=== PATIENT | female | born 2005 | race Two or more races ===

== ENCOUNTER 2025-07-18 06:26 | Inpatient (IN) | payer MEDICAID ==
[~2025-07-18] VITALS: Ht 165.1 cm; Wt 126.3 kg
[2025-07-18] MEDS: ONDANSETRON HCL 4 MG/2 ML VIAL IV ONE (07:22)
--- NOTE | 2025-07-18 07:33 | ED.PDOC ---
GI ASSESSMENT HPI Comments 20 y/o F, presents to the ED for CC of abdominal pain. Patient states, she has been experiencing RUQ abdominal pain with associated nausea/vomiting onset, 0500 this morning (07/18/25). Patient denies any fever, diarrhea, chills, sweats, or constipation. No other symptoms or modifying factors are present at this time. Chief Complaint: Abdominal Pain Time Seen by MD: 07:20 Primary Care Provider: KARON Reviewed Notes: Nurses Notes, Medications, Allergies Allergies: Coded Allergies: NO KNOWN ALLERGIES (Unverified , 02/21/11) Information Source: Patient Mode of Arrival: Ambulatory Timing: Hours Duration: Since onset Prehospital treatment: None Quality: None Vomitus: Watery Stool: Normal Severity: Moderate Recent Hx of: None Pain Location: RUQ Modifying Factors: Nothing Associated sign and symptoms: Nausea, Vomiting, Abdominal Pain Past Medical History PAST MEDICAL HISTORY: Denies Surgical History: Denies all surgeries 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 [employer]USTIC STRENGTH INSPECTOR Hx Family History Family History: Unknown Social History Smoker: Non-Smoker Alcohol: Denies ETOH Use Drugs: Denies Drug Use Lives In: Home Constitutional: denies: chills, diaphoresis, fatigue, fever, malaise, sweats, weakness, others EENTM: denies: blurred vision, double vision, ear bleeding, ear discharge, ear drainage, ear pain, ear ringing, eye pain, eye redness, hearing loss, mouth p ain, mouth swelling, nasal discharge, nose bleeding, nose congestion, nose pain, photophobia, tearing, throat pain, throat swelling, voice changes, others Respiratory: denies: cough, hemoptysis, orthopnea, SOB at rest, shortness of br eath, SOB with excertion, stridor, wheezing, others Cardiovascular: denies: chest pain, dizzy spells, diaphoresis, Dyspnea on exertion, edema, irregular heart beat, left arm pain, lightheadedness, palpitations, PND, syncope, others Gastrointestinal: reports: abdominal pain, nausea, vomiting; denies: abdomen distended, blood streaked bowels, constipated, diarrhea, dysphagia, difficulty swallowing, hematemesis, melena, poor appetite, poor fluid intake, rectal bleeding, rectal pain, others Genitourinary: denies: abnormal vagina bleeding, burning, dyspareunia, dysuria, flank pain, frequency, hematuria, incontinence, pain, , vagina discharge, urgency, others Neurological: denies: dizziness, fainting, headache, left sided numbness, left sided weakness, numbness, paresthesia, pre-existing deficit, right sided numbness, right sided weakness, seizure, speech problems, tingling, tremors, weakness, others Musculoskeletal: denies: back pain, gout, joint pain, joint swelling, muscle pain, muscle stiffness, neck pain, others Integumetry: denies: bruises, change in color, change in hair/nails, dryness, laceration, lesions, lumps, rash, wounds, others Allergic/Immunocompromised: denies: Difficulty Healing, Frequent Infections, Hives, Itching, others Hematologic/Lymphatic: denies: anemia, blood clots, easy bleeding, easy bruising, swollen glands, others Endocrine: denies: excessive hunger, excessive sweating, excessive thirst, excessive urination, flushing, intolerance to cold, intolerance to heat, unexplained weight gain, unexplained weight loss, others Psychiatric: denies: anxiety, bipolar disorder, depression, hopeless, panic disorder, schizophrenia, sleepless, suicidal, others All Other Systems: Reviewed and Negative Physical Exam General Appearance: Moderate Distress HEENT: Normal ENT Inspection, Pharynx Normal, TMs Normal Neck: Full Range of Motion, Non-Tender, Normal, Normal Inspection Respiratory: Chest Non-Tender, Lungs Clear, No Accessory Muscle Use, No Respiratory Distress, Normal Breath Sounds Cardiovascular: No Edema, No JVD, No Murmur, No Gallop, Normal Peripheral Pulses, Regular Rate/Rhythm Breast Exam: Deferred Gastrointestinal: No Organomegaly, Non Tender, No Pulsatile Mass, Normal Bowel Sounds, Soft Genitalia: Deferred Pelvic: Deferred Rectal: Deferred Extremities: No calf tenderness, Normal capillary refill, Normal inspection, Normal range of motion, Non-tender, No pedal edema Musculoskeletal : Apperance: Normal Neurologic: Alert, client strategist II-XII nml as Tested, No Motor Deficits, Normal Affect, Normal Mood, No Sensory Deficits Cerebellar Function: NOT DONE Reflexes: NOT DONE Skin: Dry, Normal Color, Warm Peripheral Pulses: 3+ Radial (R), 3+ Radial (L) Lymphatic: No Adenopathy Was a procedure done? Was a procedure done?: No GI differential Dx Differential Diagnosis: Constipation, Diverticular disease, Esophagitis, Gastritis/PUD, Gastroenteritis, Electrolyte Imbalance, Food Poisoning, Bacterial, Viral X-Ray, Labs, Meds, VS Vital Signs Date Time Temp Pulse Resp B/P (MAP) Pulse Ox O2 Delivery O2 Flow Rate FiO2 07/18/25 10:30 62 16 106/85 07/18/25 10:29 98.4 62 16 106/85 (92) 96 98.4 07/18/25 09:07 74 16 98 Room Air* 0 21 07/18/25 08:26 98.5 74 16 121/72 (88) 98 98.5 07/18/25 08:21 74 16 121/72 07/18/25 06:28 98.4 71 20 164/89 99 98.4 Lab Test 07/18/25 08:50 07/18/25 07:15 Range/Units White Blood Count 14.0 H 4.4-10.8 10^3/uL Red Blood Count 4.54 4.0-5.20 10^6/uL Hemoglobin 12.7 12.2-16.2 g/dL Hematocrit 38.3 36.0-46.0 % Mean Corpuscular Volume 84.2 80.0-100.0 fL Mean Corpuscular Hemoglobin 27.9 L 28.0-32.0 pg Mean Corpuscular Hemoglobin Concent 33.1 32.0-36.0 g/dL Red Cell Distribution Width 13.6 11.8-14.3 % Platelet Count 333 140-450 10^3/uL Mean Platelet Volume 8.0 6.9-10.8 fL Neutrophils (%) (Auto) 88.0 H 37.0-80.0 % Lymphocytes (%) (Auto) 7.1 L 10.0-50.0 % Monocytes (%) (Auto) 4.2 0.0-12.0 % Eosinophils (%) (Auto) 0.1 0.0-7.0 % Basophils (%) (Auto) 0.6 0.0-2.0 % Neutrophils # (Auto) 12.3 H 1.6-8.6 10 ^3/uL Lymphocytes # (Auto) 1.0 0.4-5.4 10 ^3/uL Monocytes # (Auto) 0.6 0-1.3 10 ^3/uL Eosinophils # (Auto) 0 0-0.8 10 ^3/uL Basophils # (Auto) 0.1 0-0.2 10 ^3/uL Nucleated Red Blood Cells 0.0 % Sodium Level 140 136-145 mmol/L Potassium Level 4.6 3.5-5.1 mmol/L Chloride Level 106 98-107 mmol/L Carbon Dioxide Level 26 20-31 mmol/L Anion Gap 8 5-15 Blood Urea Nitrogen 12 9-23 mg/dL Creatinine 0.80 0.550-1.02 mg/dL Glomerular Filtration Rate Calc 108 >90 mL/min BUN/Creatinine Ratio 15.0 10.0-20.0 Serum Glucose 102 74-106 mg/dL Calcium Level 9.2 8.7-10.4 mg/dL Urine Color Colorless Yellow Urine Clarity Turbid H Clear Urine pH 6.0 5.0-9.0 Urine Specific [place] 1.010 1.001-1.035 Urine Protein Trace H Negative Urine Ketones Negative Negative Urine Blood 3+ H Negative /uL Urine Nitrite Negative Negative Urine Bilirubin Negative Negative Urine Urobilinogen Normal Negative mg/dL Urine Leukocyte Esterase Trace Negative /uL Urine RBC 113 0 - 4 /hpf Urine Microscopic WBC 7 H 0-5 /HPF Urine Squamous Epithelial Cells Few <5 /hpf Urine Bacteria Few H None Seen /hpf Urine Mucus Few None Seen Urine Glucose Normal Normal mg/dL Current Medications Medications (Trade) Dose Ordered Sig/P[place]avi Route Start Time Stop Time Status Last Admin Ondansetron HCl (Zofran) 4 mg ONCE ONCE IV 07/18/25 07:30 07/18/25 07:31 DC 07/18/25 07:22 Sodium Chloride 1,000 ml @ 1,000 mls/hr Q1H ONCE IV 07/18/25 08:15 07/18/25 09:14 DC 07/18/25 08:20 Morphine Sulfate 2 mg ONCE ONCE IV 07/18/25 08:15 07/18/25 08:16 DC 07/18/25 08:21 Ceftriaxone Sodium 50 ml @ 100 mls/hr ONCE ONCE IV 07/18/25 11:00 07/18/25 11:29 DC 07/18/25 11:05 Patient alert. Came in for nausea. Vitals stable. Answering questions. Establish intravenous access. Was given fluids. Was given Zofran. Was given morphine. Abdomen is soft nontender. No leg swelling. No shortness a breath. No chest pain. WBC elevated. Urinalysis shows bacteria. Possible early urinary tract infection. Was given Rocephin. Possible kidney stone. Explained to the patient. Continue monitoring. [address] [address] Ph: [phone] DIAGNOSTIC IMAGING Diagnostic Imaging Report : [id number] Signed PATIENT: ALEKS ALEGRE ACCT: [id number] UNIT: [id number] : 2005 LOC: ER ROOM / BED: / AGE / SEX: 20 / F ADM STATUS: REG ER SERVICE [id number] ORDERING PHYSICIAN: CHERYL GOLDEN MD PROCEDURE(s): ABPL - CT AB PEL WO CON-NO ORAL OR IV REASON: colutisvsstone ORDER NUMBER(s): [id number], ACCESSION NUMBER(s): [id number] CT CT AB PEL WO CON-NO ORAL OR IV INDICATION: [email or web address] EXAM DATE: 07/18/2025 11:02 AM COMPARISON: None RADIATION DOSE: CTDIvol: 24.52 mGy, DLP: 1337.02 mGy*cm PROCEDURE: Helical CT images were obtained of the abdomen and pelvis without IV contrast Sagittal and coronal reconstructions are provided. ORAL CONTRAST: None. ADDITIONAL IMAGES / REFORMATS: None All CT scans at this medical facility are performed using dose modulation techniques as appropriate to a performed exam including the following: Automated exposure control was utilized; adjustment of the MA and/or KV according to patient size; and use of iterative reconstruction technique. FINDINGS: LUNG BASE: Normal. LIVER: Normal. GALLBLADDER AND BILIARY TREE: No calcified gallstones. Normal caliber wall. No intra- or extrahepatic biliary ductal dilation. PANCREAS: Normal. SPLEEN: Normal. BOWEL: Normal. Absent appendix. ADRENALS: Normal. KIDNEYS AND URETER: 2-3 mm proximal right ureter kidney stone with mild right hydronephrosis. BLADDER: Normal. REPRODUCTIVE ORGANS: Normal. LYMPH NODES:No lymphadenopathy. PERITONEUM: No ascites or free air. No other fluid collection. VESSELS: Scattered atherosclerotic calcifications are noted. RETROPERITONEUM: Normal. ABDOMINAL WALL: Normal. BONES: Scattered osseous degenerative changes are noted. IMPRESSION: 2-3 mm proximal right ureter kidney stone with mild right hydronephrosis. ATED BY: WILL DURAND MD DICTATED DATE/TIME: 07/18/25 114 SIGNED BY: WILL DURAND MD SIGNED DATE/TIME: 07/18/25 114 CC: Time of 1ST Reevaluation: 07:50 Reevaluation 1ST: Unchanged Patient Education/Counseling: Diagnosis, Treatment Family Education/Counseling: No Family Present SEPSIS Sepsis Screen Date sepsis recognized/suspect: Jul 18, 2025 Time Sepsis recognized/suspect: 628 Recent Procedure: No On Antibiotic Therapy: No Respiratory Rate >20: No Heart Rate >90: No Temp<36 C (96.8 F) or >38.3 C: No SBP <90 or MAP <65 mmHG: No New Acute Mental Status Change: No Is the patient on CPAP, BIPAP,: No Physician Orders Ct Ab Pel Wo Con-No Oral Or Iv (07/18/25 10:48) Vital Signs Date Time Temp Pulse Resp B/P (MAP) Pulse Ox O2 Delivery O2 Flow Rate FiO2 07/18/25 10:30 62 16 106/85 07/18/25 10:29 98.4 62 16 106/85 (92) 96 98.4 07/18/25 09:07 74 16 98 Room Air* 0 21 07/18/25 08:26 98.5 74 16 121/72 (88) 98 98.5 07/18/25 08:21 74 16 121/72 07/18/25 06:28 98.4 71 20 164/89 99 98.4 Laboratory Tests Test 07/18/25 08:50 White Blood Count 14.0 10^3/uL (4.4-10.8) H Medications Medications Dose Ordered Sig/P[place]avi Route Start Time Stop Time Status Last Admin Dose Admin Ceftriaxone Sodium 50 ml @ 100 mls/hr ONCE ONCE IV 07/18/25 11:00 07/18/25 11:29 DC 07/18/25 11:05 Morphine Sulfate 2 mg ONCE ONCE IV 07/18/25 08:15 07/18/25 08:16 DC 07/18/25 08:21 Ondansetron HCl 4 mg ONCE ONCE IV 07/18/25 07:30 07/18/25 07:31 DC 07/18/25 07:22 Sodium Chloride 1,000 ml @ 1,000 mls/hr Q1H ONCE IV 07/18/25 08:15 07/18/25 09:14 DC 07/18/25 08:20 Departure 1 Departure Time of Disposition: 08:37 Impression: Primary Impression: Sepsis due to urinary tract infection Additional Impressions: Gastroenteritis Kidney stone Disposition: ADMITTED INPATIENT Admit to: Med Surg Condition: Guarded Critical Care Note Critical Care Time?: No Stability Stability form required: No Heart Score Heart Score: Heart Score Response (Comments) Value History N/A 0 EKG N/A 0 Age N/A 0 Risk Factors N/A 0 Troponin N/A 0 Total 0 I personally scribed for CHERYL GOLDEN MD ([email or web address]) on 07/18/25 at 07:33. E lectronically submitted by Michelle Cavazos ([email or web address]). I personally scribed for CHERYL GOLDEN MD ([email or web address]) on 07/18/25 at 17:33. Electronically submitted by Michelle Cavazos [email or web address]). CHERYL GOLDEN MD Jul 18, 2025 07:33
[2025-07-18] MEDS: SODIUM CHLORIDE 0.9% 1,000 ML IV ONE (08:20)
[2025-07-18] MEDS: MORPHINE SULFATE INJ 2 MG/ml SYRG IV ONE (08:21)
[2025-07-18 09:00] LABS: Hematocrit 38.3 % (36.0-46.0); Hemoglobin 12.7 g/dL (12.2-16.2); Mean Corpuscular Hemoglobin 27.9 pg (28.0-32.0); Mean Corpuscular Volume 84.2 fL (80.0-100.0); Nucleated Red Blood Cells % 0.0 %
[2025-07-18 09:02] LABS: Chloride 106 mmol/L (98-107); Potassium 4.6 mmol/L (3.5-5.1); Sodium 140 mmol/L (136-145)
[2025-07-18 09:03] LABS: Anion Gap 8 (5-15); Carbon Dioxide 26 mmol/L (20-31)
[2025-07-18 09:04] LABS: Calcium 9.2 mg/dL (8.7-10.4)
[2025-07-18 09:07] VITALS: PULSE 74; RESP 16; O2SAT 98
[2025-07-18 09:08] LABS: Glucose 102 mg/dL (74-106)
[2025-07-18 09:09] LABS: BUN/Creatinine Ratio 15.0 (10.0-20.0); Blood Urea Nitrogen 12 mg/dL (9-23)
[2025-07-18 10:00] LABS: Urine Protein, UAD TRACE (Negative)
--- NOTE | 2025-07-18 11:43 | DVH ---
CT CT AB PEL WO CON-NO ORAL OR IV INDICATION: colutisvsstone EXAM DATE: 07/18/2025 11:02 AM COMPARISON: None RADIATION DOSE: CTDIvol: 24.52 mGy, DLP: 1337.02 mGy*cm PROCEDURE: Helical CT images were obtained of the abdomen and pelvis without IV contrast Sagittal and coronal reconstructions are provided. ORAL CONTRAST: None. ADDITIONAL IMAGES / REFORMATS: None All C T scans at this medical facility are performed using dose modulation techniques as appropriate to a p erformed exam including the following: Automated exposure control was utilized; adjustment of the MA and/or KV according to patient size; and use of iterative reconstruction technique. FINDINGS: LUNG BASE: Normal. LIVER: Normal. GALLBLADDER AND BILIARY TREE: No calcified gallstones. Normal caliber wall. No intra- or extrahepatic biliary ductal dilation. PANCREAS: Normal. SPLEEN: Normal. BOWEL: Normal. Absent appendix. ADRENALS: Normal. KIDNEYS AND URETER: 2-3 mm proximal right ureter kidney stone with mild right hydronephrosis. BLADDER: Normal. REPRODUCTIVE ORGANS: Normal. LYMPH NODES:No lymphadenopathy. PERITONEUM: No ascites or free air. No other fluid collection. VESSELS: Scattered atherosclerotic calcifications are noted. RETROPERITONEUM: Normal. ABDOMINAL WALL: Normal. BONES: Scattered osseous degenerative changes are noted. IMPRESSION: 2-3 mm proximal right ureter kidney stone with mild right hydronephrosis.
--- NOTE | 2025-07-18 15:24 | DVHHP2 ---
History of Present Illness Reason for Visit: abd pain History of Present Illness 20-year-old female with a past medical history of high-functioning autism and prior appendectomy in 2008 presents with acute right upper quadrant abdominal pain radiating to the back, associated with vomiting (non-bloody), which began at approximately 5:00 AM today. The patient denies fever, chest pain, shortness of breath, hematuria, or dysuria. She is voiding without difficulty and denies any urinary urgency or incontinence. Her mother is present and provides additional history. In the ED, she was treated with IV morphine for pain. Initial labs revealed WBC 14.0 with otherwise unremarkable CBC, and UA showed presence of bacteria. A CT scan of the pelvis demonstrated a 23 mm right kidney stone with mild right-sided hydronephrosis, consistent with symptomatic nephrolithiasis. The patient was started on IV fluids, pain control (Toradol, morphine), and empiric IV antibiotics. Urine culture has been sent. She will be admitted for pain control, hydration, and urology monitoring. Past Medical History Autism Past Surgical History See HPI above Family History Reviewed, non-contributory to the management of this case. Past Social History The patient lives at home, denies smoking, alcohol or illicit drugs abuse. Review of Systems Constitutional: No: Fever, Chills, Sweats, Weakness, Malaise, Other Eyes: No: Pain, Vision change, Conjunctivae inflammation, Eyelid inflammation, Other, Redness ENT: No: Ear pain, Ear discharge, Nose pain, Nose discharge, Nose congestion, Mouth pain, Mouth swelling, Throat pain, Throat swelling, Other Respiratory: No: Cough, Dry, Shortness of breath, SOB with excertion, Wheezing, Hemoptysis, Pleuritic Pain, Sputum, Wheezing, Other Cardiovascular: No: Chest Pain, Palpitations, Orthopnea, Paroxysmal Noc. Dyspnea, Edema, Lt Headedness, Other Gastrointestinal: Nausea, Vomiting, Abdominal Pain; No: Diarrhea, Constipation, Melena, Hematochezia, Other Genitourinary: No Dysuria, No Frequency, No Incontinence, No Hematuria, No Retention, No Other Musculoskeletal: No: other, neck pain, shoulder pain, arm pain, back pain, hand pain, leg pain, foot pain Skin: No: Rash, Lesions, Jaundice, Bruising, Other Neurological: No: Weakness, Numbness, Incoordination, Change in speech, Confusion, Seizures, Other Allergies: Coded Allergies: NO KNOWN ALLERGIES (Unverified , 02/21/11) Exam Vital Signs Vital Signs Date Time Temp Pulse Resp B/P (MAP) Pulse Ox O2 Delivery O2 Flow Rate FiO2 07/18/25 10:30 62 16 106/85 07/18/25 10:29 98.4 96 98.4 07/18/25 09:07 Room Air* 0 21 General Appearance: Alert, Oriented X3, Cooperative, No acute distress HEENT: Atraumatic, PERRLA, EOMI, Mucous membr. moist/pink Respiratory: Clear to auscultation, Normal air movement Cardiovascular: Regular rate, Normal S1, Normal S2, No murmurs Abdominal: Normal bowel sounds, Soft, No tenderness, No hepatospenomegaly, No masses Extremities: No clubbing, No cyanosis, No edema, Normal pulses, No tenderness/swelling Skin: No rashes, No breakdown, No significant lesion Neuro: Normal gait, Normal speech, Strength at 5/5 X4 ext, Normal tone, Sensation intact, Cranial nerves 3-12 NL Psych/Mental Status: Mental status NL, Mood NL Labs/Xrays CT scan abdomen pelvis shows right kidney stone 2-3 mm with mild hydronephrosis I reviewed labs, imaging CT scan abdomen pelvis, EKG and all diagnostic studies on this patient from ED records and the medical chart Labs Test 07/18/25 08:50 07/18/25 07:15 Range/Units White Blood Count 14.0 H 4.4-10.8 10^3/uL Red Blood Count 4.54 4.0-5.20 10^6/uL Hemoglobin 12.7 12.2-16.2 g/dL Hematocrit 38.3 36.0-46.0 % Mean Corpuscular Volume 84.2 80.0-100.0 fL Mean Corpuscular Hemoglobin 27.9 L 28.0-32.0 pg Mean Corpuscular Hemoglobin Concent 33.1 32.0-36.0 g/dL Red Cell Distribution Width 13.6 11.8-14.3 % Platelet Count 333 140-450 10^3/uL Mean Platelet Volume 8.0 6.9-10.8 fL Neutrophils (%) (Auto) 88.0 H 37.0-80.0 % Lymphocytes (%) (Auto) 7.1 L 10.0-50.0 % Monocytes (%) (Auto) 4.2 0.0-12.0 % Eosinophils (%) (Auto) 0.1 0.0-7.0 % Basophils (%) (Auto) 0.6 0.0-2.0 % Neutrophils # (Auto) 12.3 H 1.6-8.6 10 ^3/uL Lymphocytes # (Auto) 1.0 0.4-5.4 10 ^3/uL Monocytes # (Auto) 0.6 0-1.3 10 ^3/uL Eosinophils # (Auto) 0 0-0.8 10 ^3/uL Basophils # (Auto) 0.1 0-0.2 10 ^3/uL Nucleated Red Blood Cells 0.0 % Sodium Level 140 136-145 mmol/L Potassium Level 4.6 3.5-5.1 mmol/L Chloride Level 106 98-107 mmol/L Carbon Dioxide Level 26 20-31 mmol/L Anion Gap 8 5-15 Blood Urea Nitrogen 12 9-23 mg/dL Creatinine 0.80 0.550-1.02 mg/dL Glomerular Filtration Rate Calc 108 >90 mL/min BUN/Creatinine Ratio 15.0 10.0-20.0 Serum Glucose 102 74-106 mg/dL Calcium Level 9.2 8.7-10.4 mg/dL Urine Color Colorless Yellow Urine Clarity Turbid H Clear Urine pH 6.0 5.0-9.0 Urine Specific [place] 1.010 1.001-1.035 Urine Protein Trace H Negative Urine Ketones Negative Negative Urine Blood 3+ H Negative /uL Urine Nitrite Negative Negative Urine Bilirubin Negative Negative Urine Urobilinogen Normal Negative mg/dL Urine Leukocyte Esterase Trace Negative /uL Urine RBC 113 0 - 4 /hpf Urine Microscopic WBC 7 H 0-5 /HPF Urine Squamous Epithelial Cells Few <5 /hpf Urine Bacteria Few H None Seen /hpf Urine Mucus Few None Seen Urine Glucose Normal Normal mg/dL SEPSIS Sepsis Screen Date sepsis recognized/suspect: Jul 18, 2025 Time Sepsis recognized/suspect: 628 Recent Procedure: No On Antibiotic Therapy: No Respiratory Rate >20: No Heart Rate >90: No Temp<36 C (96.8 F) or >38.3 C: No SBP <90 or MAP <65 mmHG: No New Acute Mental Status Change: No Is the patient on CPAP, BIPAP,: No Physician Orders Ct Ab Pel Wo Con-No Oral Or Iv (07/18/25 10:48) Admit (07/18/25 15:19) Allergies (07/18/25 15:19) Code Status (07/18/25 15:19) 0.9% Ns 1000 Ml (07/18/25 15:30) Ondansetron Hcl (Zofran) (07/18/25 15:30) Docusate Sodium Capsule (Colace Capsule) (07/18/25 15:30) Complete Blood Count (07/19/25 04:00) Comprehensive Metabolic Panel (07/19/25 04:00) Condition: Stable (07/18/25 15:19) BRP (07/18/25 15:19) Morphine Sulfate Injection (07/18/25 15:30) Sequential Compression Device (07/18/25 ) Nitroglycerin Sublingual (Ntrostat Subli (07/18/25 15:30) Stat Ekg For Chest Pain (07/18/25 15:19) Notify Md Of Changes From Base (07/18/25 15:19) Elevator Pilot For 24 Hours (07/18/25 15:19) Emergency Dysrhythmia Protocol (07/18/25 15:19) Rhythm Strips Once Every Shift (07/18/25 15:19) Oxygen By Nasal Cannula (07/18/25 15:19) Tamsulosin Hydrochloride (Flomax) (07/18/25 18:00) Ketorolac Injection (Toradol Injection) (07/18/25 15:30) Ceftriaxone Ivpb Rocephin (07/19/25 09:00) Ceftriaxone Ivpb Rocephin (07/18/25 15:30) Urine Bacterial Culture (07/18/25 15:19) Vital Signs Date Time Temp Pulse Resp B/P (MAP) Pulse Ox O2 Delivery O2 Flow Rate FiO2 07/18/25 10:30 62 16 106/85 07/18/25 10:29 98.4 62 16 106/85 (92) 96 98.4 07/18/25 09:07 74 16 98 Room Air* 0 21 07/18/25 08:26 98.5 74 16 121/72 (88) 98 98.5 07/18/25 08:21 74 16 121/72 Laboratory Tests Test 07/18/25 08:50 White Blood Count 14.0 10^3/uL (4.4-10.8) H Medications Medications Dose Ordered Sig/Pallavi Route Start Time Stop Time Status Last Admin Dose Admin Ceftriaxone Sodium 50 ml @ 100 mls/hr ONCE ONCE IV 07/18/25 11:00 07/18/25 11:29 DC 07/18/25 11:05 100 MLS/HR Morphine Sulfate 2 mg ONCE ONCE IV 07/18/25 08:15 07/18/25 08:16 DC 07/18/25 08:21 2 MG Ondansetron HCl 4 mg ONCE ONCE IV 07/18/25 07:30 07/18/25 07:31 DC 07/18/25 07:22 4 MG Sodium Chloride 1,000 ml @ 1,000 mls/hr Q1H ONCE IV 07/18/25 08:15 07/18/25 09:14 DC 07/18/25 08:20 1,000 MLS/HR Assessment/Plan Assessment/Plan 20-year-old female with Symptomatic right nephrolithiasis with mild hydronephrosis and elevated WBC; admission for IV hydration, pain control, and empiric antibiotic therapy. acute Right Ureteral Calculus with Mild Hydronephrosis CT: 23 mm stone, right side Mild hydronephrosis present Pain managed with IV morphine and toradol Continue IV hydration to promote stone passage Urology to follow if pain uncontrolled or obstruction worsens ordered flomax acute Leukocytosis WBC 14.0 UA with bacteria Empiric IV antibiotics started ceftriaxone; urine culture sent Adjust antibiotics per sensitivity if indicated acute Nausea/Vomiting Likely secondary to renal colic Treated symptomatically Continue antiemetics PRN High-Functioning Autism Baseline functional Family (mother) involved in care Ensure communication is clear and supportive CHRONIC PROBLEM LIST: High-functioning autism S/p appendectomy (2008) FEN / PPx: Fluids: IV NS aggressive hydration Electrolytes: Monitor BMP daily Nutrition: Regular diet as tolerated DVT Prophylaxis: SCDs while inpatient GI Prophylaxis: no gi ppx since no hx of gerds or gi bleed DISPOSITION: Admit to medicine for management of right-sided nephrolithiasis with mild hydronephrosis and leukocytosis. Continue IV fluids, pain control, and antibiotics pending culture results. Monitor urine output, symptom progression, and consult urology if no improvement or worsening obstruction. Plan discussed with: Patient My Orders Orders - JOCY JANSEN DNP Procedure Category Date Status Time Admit ADMIT 07/18/25 Transmitted 15:19 Allergies BASIA 07/18/25 In Process 15:19 Code Status CODE 07/18/25 Transmitted 15:19 0.9% Ns 1000 Ml PHA 07/18/25 Transmitted 15:30 Ondansetron Hcl PHA 07/18/25 Transmitted (Zofran) 15:30 Docusate Sodium PHA 07/18/25 Transmitted Capsule (Colace 15:30 Complete Blood Count LAB 07/19/25 Verified 04:00 Comprehensive LAB 07/19/25 Verified Metabolic Panel 04:00 Condition: Stable [facility] 07/18/25 In Process 15:19 BRP [facility] 07/18/25 In Process 15:19 Morphine Sulfate [facility] 07/18/25 Transmitted Injection 15:30 Sequential [facility] 07/18/25 In Process Compression Device Nitroglycerin [facility] 07/18/25 Transmitted Sublingual (Ntrostat 15:30 Stat Ekg For Chest [facility] 07/18/25 In Process Pain 15:19 Notify Md Of Changes [facility] 07/18/25 Transmitted From Base 15:19 Elevator Pilot For [facility] 07/18/25 Transmitted 24 Hours 15:19 Emergency Dysrhythmia [facility] 07/18/25 Transmitted Protocol 15:19 Rhythm Strips Once [facility] 07/18/25 Transmitted Every Shift 15:19 Oxygen By Nasal RT 07/18/25 Transmitted Cannula 15:19 Tamsulosin [facility] 07/18/25 Transmitted Hydrochloride (Flomax) 18:00 Ketorolac Injection [facility] 07/18/25 Transmitted (Toradol Injection) 15:30 Ceftriaxone Ivpb PHA 07/19/25 Transmitted Rocephin 09:00 Ceftriaxone Ivpb [facility] 07/18/25 Transmitted Rocephin 15:30 Urine Bacterial GUERLINE 07/18/25 Transmitted Culture 15:19 Date of Service: Jul 18, 2025 Billing Provider: JOCY JANSEN DNP Common Visit Codes: [id number] INP/OBS CARE (HIGH) JOCY JANSEN DNP Jul 18, 2025 15:24
[2025-07-18] MEDS ORDERED: DOCUSATE SOD 100 MG CAP PO PRN (15:30)
[2025-07-18] MEDS ORDERED: ONDANSETRON HCL 4 MG/2 ML VIAL IV PRN (15:30)
[2025-07-18] MEDS ORDERED: NITROGLYCERIN 0.4 MG SL TAB SL PRN (15:30)
[2025-07-18] MEDS: SODIUM CHLORIDE 0.9% 1,000 ML IV SCH (17:37)
[2025-07-18 17:40] VITALS: PULSE 71; RESP 14; O2SAT 100
[2025-07-18] MEDS: TAMSULOSIN HYDROCHLORIDE 0.4 MG CAP PO SCH (17:58)
[2025-07-18 19:30] VITALS: PULSE 79; RESP 16; O2SAT 100
[2025-07-19] MEDS: KETOROLAC TROMETH 30 MG/ML 1ML VIAL IV PRN (03:09)
[2025-07-19 04:16] LABS: Hematocrit 35.8 % (36.0-46.0); Hemoglobin 11.9 g/dL (12.2-16.2); Mean Corpuscular Hemoglobin 28.1 pg (28.0-32.0); Mean Corpuscular Volume 84.5 fL (80.0-100.0); Nucleated Red Blood Cells % 0.1 %
[2025-07-19 04:26] LABS: Alanine Aminotransferase 13 U/L (7-40); Albumin 4.1 g/dL (3.2-4.8); Alkaline Phosphatase 71 U/L (46-116); Anion Gap 10 (5-15); BUN/Creatinine Ratio 11.3 (10.0-20.0); Bilirubin, Total 0.4 mg/dL (0.2-1.0); Calcium 8.9 mg/dL (8.7-10.4); Carbon Dioxide 23 mmol/L (20-31); Chloride 105 mmol/L (98-107); Glucose 103 mg/dL (74-106); Potassium 3.6 mmol/L (3.5-5.1); Sodium 138 mmol/L (136-145); Total Protein 7.3 g/dL (5.7-8.2)
[2025-07-19 04:39] LABS: Blood Urea Nitrogen 8 mg/dL (9-23)
[2025-07-19 05:40] VITALS: BP 116/38; PULSE 79; RESP 14; TEMP 98.5; O2SAT 96
[2025-07-19 08:18] VITALS: BP 106/62; PULSE 63; RESP 18; TEMP 98.3; O2SAT 97
--- NOTE | 2025-07-19 12:37 | DVHPN2 ---
Reviewed: H&P Changes from previous H/P or p: No Changes General: Per HPI Eyes: No Pain, No Vision change, No Conjunctivae inflammation, No Eyelid inflammation, No Other, No Redness ENT: No Ear pain, No Ear discharge, No Nose pain, No Nose discharge, No Nose congestion, No Mouth pain, No Mouth swelling, No Throat pain, No Throat swelling, No Other Cardiovascular: No Chest Pain, No Palpitations, No Orthopnea, No Paroxysmal Noc. Dyspnea, No Edema, No Lt Headedness, No Other Respiratory: No Cough, No Dry, No Shortness of breath, No SOB with excertion, No Wheezing, No Hemoptysis, No Pleuritic Pain, No Sputum, No Other Gastrointestinal: Nausea, Vomiting, Abdominal Pain; No Diarrhea, No Constipation, No Melena, No Hematochezia, No Other Genitourinary: No Dysuria, No Frequency, No Incontinence, No Hematuria, No Retention, No Other Musculoskeletal: No other, No neck pain, No shoulder pain, No arm pain, No back pain, No hand pain, No leg pain, No foot pain Skin: No Rash, No Lesions, No Jaundice, No Bruising, No Other Objective Vitals Vital Signs Date Time Temp Pulse Resp B/P (MAP) Pulse Ox O2 Delivery O2 Flow Rate FiO2 07/19/25 08:18 98.3 63 18 106/62 (77) 97 98.3 07/18/25 19:30 Room Air* 0 21 Intake/Output Intake and Output 07/19/25 07:00 Intake Total 1960 ml Balance 1960 ml Intake IV Total 1960 ml Exam General Appearance: Alert, Oriented X3, Cooperative, No acute distress HEENT: Atraumatic, PERRLA, EOMI, Mucous membr. moist/pink Respiratory: Clear to auscultation, Normal air movement Cardiovascular: Regular rate, Normal S1, Normal S2, No murmurs Abdominal: Normal bowel sounds, Soft, No tenderness, No hepatospenomegaly, No masses Extremities: No clubbing, No cyanosis, No edema, Normal pulses, No tenderness/swelling Skin: No rashes, No breakdown, No significant lesion Neuro: Normal gait, Normal speech, Strength at 5/5 X4 ext, Normal tone, Sensation intact, Cranial nerves 3-12 NL Psych/Mental Status: Mental status NL, Mood NL Medications Current Medications Medications Dose Ordered Sig/Pallavi Route Start Time Stop Time Status Last Admin Dose Admin Sodium Chloride 1,000 ml @ 120 mls/hr Q8H20M IV 07/18/25 15:30 07/19/25 08:29 120 MLS/HR Ondansetron HCl 4 mg Q4HP PRN IV 07/18/25 15:30 Docusate Sodium 100 mg BIDPRN PRN PO 07/18/25 15:30 Morphine Sulfate 2 mg Q4HPRN PRN IV 07/23/25 15:30 Nitroglycerin 0.4 mg Q5MINP PRN SL 07/18/25 15:30 Tamsulosin HCl 0.4 mg QPM PO 07/18/25 18:00 07/18/25 17:58 0.4 MG Ketorolac Tromethamine 15 mg Q6HPRN PRN IV 07/18/25 15:30 07/23/25 15:29 07/19/25 03:09 15 MG Ceftriaxone Sodium 50 ml @ 100 mls/hr DAILY@09 IV 07/19/25 09:00 07/19/25 08:26 100 MLS/HR Laboratory Results Laboratory Tests 07/19/25 03:23 Chemistry Test 07/19/25 03:23 Albumin 4.1 g/dL (3.2-4.8) Calcium Level 8.9 mg/dL (8.7-10.4) Total Protein 7.3 g/dL (5.7-8.2) LFT Test 07/19/25 03:23 Alanine Aminotransferase (ALT) 13 U/L (7-40) Alkaline Phosphatase 71 U/L (46-116) Aspartate Amino Transferase (AST) 15 U/L (13-40) Total Bilirubin 0.4 mg/dL (0.2-1.0) Urinalysis Test 07/18/25 07:15 Urine Color Colorless (Yellow) Urine Clarity Turbid (Clear) H Urine pH 6.0 (5.0-9.0) Urine Specific [place] 1.010 (1.001-1.035) Urine Protein Trace (Negative) H Urine Ketones Negative (Negative) Urine Blood 3+ /uL (Negative) H Urine Nitrite Negative (Negative) Urine Bilirubin Negative (Negative) Urine Urobilinogen Normal mg/dL (Negative) Urine Leukocyte Esterase Trace /uL (Negative) Urine RBC 113 /hpf (0 - 4) Urine Microscopic WBC 7 /HPF (0-5) H Urine Squamous Epithelial Cells Few /hpf (<5) Urine Bacteria Few /hpf (None Seen) H Urine Mucus Few (None Seen) Urine Glucose Normal mg/dL (Normal) Microbiology Microbiology Date/Time Source Procedure Growth Status 07/18/25 07:15 Voided Urine Urine Culture - Preliminary Resulted Labs and/or images reviewed: Labs reviewed by me, Image(s) reviewed by me Assessment/Plan Assessment/Plan 20-year-old female with a past medical history of high-functioning autism and prior appendectomy in 2008 presents with acute right upper quadrant abdominal pain radiating to the back, associated with vomiting (non-bloody), which began at approximately 5:00 AM today. The patient denies fever, chest pain, shortness of breath, hematuria, or dysuria. She is voiding without difficulty and denies any urinary urgency or incontinence. Her mother is present and provides additional history. In the ED, she was treated with IV morphine for pain. Initial labs revealed WBC 14.0 with otherwise unremarkable CBC, and UA showed presence of bacteria. A CT scan of the pelvis demonstrated a 23 mm right kidney stone with mild right-sided hydronephrosis, consistent with symptomatic nephrolithiasis. The patient was started on IV fluids, pain control (Toradol, morphine), and empiric IV antibiotics. Urine culture has been sent. She will be admitted for pain control, hydration, and urology monitoring. 07/19: 20-year-old female. Coming in with right flank pain, CT showing right nephrolithiasis with mild hydronephrosis, possible also acute cystitis. Continuing IV antibiotics, IV fluids, prn analgesia, prn antiemetics. We will need 1 more day of IV fluids continue Flomax. acute Right nephrolithiasis with Mild Hydronephrosis acute Leukocytosis acute Nausea/Vomiting Likely secondary to renal colic Acute cystitis possible High-functioning autism S/p appendectomy (2008) Plan: IV fluids IV pain control analgesia IV antibiotics Continue Flomax Med surge Full code Plan discussed with: Patient Date of Service: Jul 19, 2025 Billing Provider: JUSTINO AVILA MD Common Visit Codes: [id number] INP/OBS CARE(HIGH) JUSTINO AVILA MD Jul 19, 2025 12:37
[2025-07-19 13:00] VITALS: BP 101/58; PULSE 81; TEMP 98.2; O2SAT 97
[2025-07-19 20:43] VITALS: BP 117/68; PULSE 79; RESP 16; TEMP 97.9; O2SAT 96
[2025-07-19 23:15] VITALS: BP 131/75; PULSE 84; RESP 19; TEMP 98.4; O2SAT 98
[2025-07-19 23:24] VITALS: PULSE 79; RESP 16; O2SAT 97
[2025-07-20 01:00] VITALS: BP 108/66; PULSE 88; RESP 18; TEMP 98.3; O2SAT 98
[2025-07-20 05:00] VITALS: BP 117/78; PULSE 76; RESP 18; TEMP 98; O2SAT 96
[2025-07-20 07:19] LABS: Hematocrit 34.9 % (36.0-46.0); Hemoglobin 11.8 g/dL (12.2-16.2); Mean Corpuscular Hemoglobin 28.5 pg (28.0-32.0); Mean Corpuscular Volume 84.4 fL (80.0-100.0); Nucleated Red Blood Cells % 0.0 %
[2025-07-20 07:27] LABS: Potassium 3.9 mmol/L (3.5-5.1); Sodium 142 mmol/L (136-145)
[2025-07-20 07:28] LABS: Anion Gap 10 (5-15); Calcium 8.7 mg/dL (8.7-10.4); Carbon Dioxide 24 mmol/L (20-31); Chloride 108 mmol/L (98-107)
[2025-07-20 07:33] LABS: BUN/Creatinine Ratio 10.2 (10.0-20.0); Glucose 90 mg/dL (74-106)
[2025-07-20 07:35] LABS: Blood Urea Nitrogen 6 mg/dL (9-23)
[2025-07-20 08:39] VITALS: BP 120/72; PULSE 73; RESP 17; TEMP 97.2; O2SAT 95
--- NOTE | 2025-07-20 11:12 | DVHDS2 ---
Discharge Summary Date of Admission Jul 18, 2025 at 15:19 Date of Discharge: Jul 20, 2025 Labs/Diagnostic Data: Laboratory Results Test 07/20/25 05:31 07/19/25 03:23 07/18/25 07:15 White Blood Count 8.0 10^3/uL (4.4-10.8) Red Blood Count 4.14 10^6/uL (4.0-5.20) Hemoglobin 11.8 g/dL (12.2-16.2) Hematocrit 34.9 % (36.0-46.0) Mean Corpuscular Volume 84.4 fL (80.0-100.0) Mean Corpuscular Hemoglobin 28.5 pg (28.0-32.0) Mean Corpuscular Hemoglobin Concent 33.8 g/dL (32.0-36.0) Red Cell Distribution Width 14.1 % (11.8-14.3) Platelet Count 305 10^3/uL (140-450) Mean Platelet Volume 8.3 fL (6.9-10.8) Neutrophils (%) (Auto) 68.5 % (37.0-80.0) Lymphocytes (%) (Auto) 22.3 % (10.0-50.0) Monocytes (%) (Auto) 7.9 % (0.0-12.0) Eosinophils (%) (Auto) 0.9 % (0.0-7.0) Basophils (%) (Auto) 0.4 % (0.0-2.0) Neutrophils # (Auto) 5.5 10 ^3/uL (1.6-8.6) Lymphocytes # (Auto) 1.8 10 ^3/uL (0.4-5.4) Monocytes # (Auto) 0.6 10 ^3/uL (0-1.3) Eosinophils # (Auto) 0.1 10 ^3/uL (0-0.8) Basophils # (Auto) 0 10 ^3/uL (0-0.2) Nucleated Red Blood Cells 0.0 % Sodium Level 142 mmol/L (136-145) Potassium Level 3.9 mmol/L (3.5-5.1) Chloride Level 108 mmol/L (98-107) Carbon Dioxide Level 24 mmol/L (20-31) Anion Gap 10 (5-15) Blood Urea Nitrogen 6 mg/dL (9-23) Creatinine 0.59 mg/dL (0.550-1.02) Glomerular Filtration Rate Calc 132 mL/min (>90) BUN/Creatinine Ratio 10.2 (10.0-20.0) Serum Glucose 90 mg/dL (74-106) Calcium Level 8.7 mg/dL (8.7-10.4) Total Bilirubin 0.4 mg/dL (0.2-1.0) Aspartate Amino Transferase (AST) 15 U/L (13-40) Alanine Aminotransferase (ALT) 13 U/L (7-40) Alkaline Phosphatase 71 U/L (46-116) Total Protein 7.3 g/dL (5.7-8.2) Albumin 4.1 g/dL (3.2-4.8) Urine Color Colorless (Yellow) Urine Clarity Turbid (Clear) Urine pH 6.0 (5.0-9.0) Urine Specific [place] 1.010 (1.001-1.035) Urine Protein Trace (Negative) Urine Ketones Negative (Negative) Urine Blood 3+ /uL (Negative) Urine Nitrite Negative (Negative) Urine Bilirubin Negative (Negative) Urine Urobilinogen Normal mg/dL (Negative) Urine Leukocyte Esterase Trace /uL (Negative) Urine RBC 113 /hpf (0 - 4) Urine Microscopic WBC 7 /HPF (0-5) Urine Squamous Epithelial Cells Few /hpf (<5) Urine Bacteria Few /hpf (None Seen) Urine Mucus Few (None Seen) Urine Glucose Normal mg/dL (Normal) Other Laboratory Tests 07/20/25 05:31 Brief Hx & Hospital Course: 20-year-old female with a past medical history of high-functioning autism and prior appendectomy in 2008 presents with acute right upper quadrant abdominal pain radiating to the back, associated with vomiting (non-bloody), which began at approximately 5:00 AM today. The patient denies fever, chest pain, shortness of breath, hematuria, or dysuria. She is voiding without difficulty and denies any urinary urgency or incontinence. Her mother is present and provides additional history. In the ED, she was treated with IV morphine for pain. Initial labs revealed WBC 14.0 with otherwise unremarkable CBC, and UA showed presence of bacteria. A CT scan of the pelvis demonstrated a 23 mm right kidney stone with mild right-sided hydronephrosis, consistent with symptomatic nephrolithiasis. The patient was started on IV fluids, pain control (Toradol, morphine), and empiric IV antibiotics. Urine culture has been sent. She will be admitted for pain control, hydration, and urology monitoring. 07/19: 20-year-old female. Coming in with right flank pain, CT showing right nephrolithiasis with mild hydronephrosis, possible also acute cystitis. Continuing IV antibiotics, IV fluids, prn analgesia, prn antiemetics. We will need 1 more day of IV fluids continue Flomax. 07/20: Patient continues to improve, nausea resolving pain resolved. No CVA tenderness. Patient will be safe to go home, recommend aggressive fluid hydration next 3 days, Flomax for next 7 days daily, avoid soda and acidic drinks like limited, Zofran for nausea prn, Sanibel as 3rd line after Tylenol and ibuprofen prn,., Keflex 500 b.i.d. for 3 days for possible cystitis related to nephrolithiasis. Diagnosis: acute Right nephrolithiasis with Mild Hydronephrosis Acute complicated cystitis possible, with hematuria Leukocytosis Intractable Nausea/Vomiting Likely secondary to renal colic High-functioning autism S/p appendectomy (2008) Plan: -, recommend aggressive fluid hydration next 3 days, -Flomax 0.4 mg daily for 7 days -, avoid soda and acidic drinks like limited, -Zofran oral dissolvable tablets 4 mg, can be taken up to 4 times daily as needed for nausea -For pain use Tylenol 1st line, IV tobramycin line, for 3rd line use Sanibel. [place] can be taken up to 3 times daily as needed - Keflex 500 b.i.d. for 3 days Condition at Discharge: Fair Final Diagnosis/Problems List acute Right nephrolithiasis with Mild Hydronephrosis Acute complicated cystitis possible, with hematuria Leukocytosis Intractable Nausea/Vomiting Likely secondary to renal colic High-functioning autism S/p appendectomy (2008) Discharge Disposition: Home Discharge Statement: "Patient was advised to return to the ER or call 911 if any headaches, dizziness, shortness of breath, chest pain, abdominal pain, bleeding, fevers, or worsening of medical condition. Patient was counseled about treatment plan, medications, possible side effects, patientverbalized understanding. All questions were answered to the best of my ability. This discharge took greater then 30 minutes in planning, reviewing documentation, counseling the patient, and discussing with other team members." ASSESSMENT ASSESSMENT Assessment Date of Service: Jul 20, 2025 Billing Provider: JUSTINO AVILA MD Common Visit Codes: [id number] DISCH DAY >30min JUSTINO AVILA MD Jul 20, 2025 11:12
[2025-07-20] MEDS ORDERED: ZOFR4T PO (12:59)
[2025-07-20] MEDS ORDERED: HYDR-4902 PO (12:59)
[2025-07-20] MEDS ORDERED: TAMS-35 PO (12:59)
[2025-07-20] MEDS ORDERED: CEPH250C PO (12:59)
[2025-07-20 13:18] VITALS: BP 125/84; PULSE 67; RESP 18; TEMP 97; O2SAT 96
[2025-07-23] MEDS ORDERED: MORPHINE SULFATE 4 MG/ML SYR/VIAL IV PRN (15:30)
== END 2025-07-20 16:30 | disposition home or self-care (01) | DRG 463 ==
LOC: ER 06:26 → OVERFLOW 15:19 → WEST WING 07-19 23:01
PROVIDERS: ADMIT Student in an Organized Health Care Education/Training Program; ATTEND Student in an Organized Health Care Education/Training Program
DX: N13.6 Pyonephrosis (principal); F84.0 Autistic disorder; K52.9 Noninfective gastroenteritis and colitis, unspecified; Z90.49 Acquired absence of other specified parts of digestive tract; Z79.899 Other long term (current) drug therapy
CPT/HCPCS: 36415; 74176; 80048; 80053; 81001; 85025; 87086; 96365; 96375; G0378; J1885; J2405